=== PATIENT | female | born 1975 | race Caucasian/White ===

== ENCOUNTER → 2024-09-04 16:16 | Outpatient (REF) | payer BC, SELFPAY | LOC: WDC 16:16 | PROVIDERS: ATTENDING PHYSICIAN Obstetrics & Gynecology; FAMILY PHYSICIAN Internal Medicine | DX: Z12.31 Encounter for screening mammogram for malignant neoplasm of breast (principal) | CPT/HCPCS: 77063; 77067 ==

== ENCOUNTER 2025-10-08 12:12 | Emergency (ER) | payer BC, SELFPAY ==
[2025-10-08 12:24] VITALS: BP 121/98
[2025-10-08 13:13] VITALS: BMI 25.1
--- NOTE | 2025-10-08 13:59 | ED.MUSCINJ ---
HPI-Injury
General
Chief Complaint: Fall
Time Seen by Provider: 10/08/25 13:53
Nursing documentation reviewed up to this point in time: agreed with
History of Present Illness-Injury
Initial Injury comments:
49-year-old female presents to the ER for evaluation of valenzuela left forearm pain after she fell down the steps over the weekend. Patient states that she fell down an entire flight of wooden steps, mainly on her bottom back and left upper extremity.
Patient is right-handed. She states that she has been able to ambulate, she denies any specific discomfort in her extremities or her back. She is most concerned due to persistent bruising and pain over her left forearm. She denies any loss of
consciousness. No nausea or vomiting. No change in vision. No neck pain or paresthesias to her arms or legs. She is not on any blood thinners. She has not taken any pain relievers for her discomfort
Past History
Past History
ED Past Medical History: Other (MS, PVC's)
ED Past Surgical History: Cholecystectomy and Other (Deviated nasal septum)
Social History
Tobacco: Non-smoker
Alcohol: Occasional
Drug: None
Personal:
Living: with family
Review of Systems
Review of Systems
Allergies reviewed?: Yes
Phy Exam
Physical Exam
Physical Exam:
Vital signs reviewed, patient is awake, alert, appears no acute distress, head is normocephalic atraumatic, GCS is 15 moving all extremities symmetrically without focal deficit, bilateral upper extremities are examined, no focal pain on palpation
over bilateral shoulders, upper arms, right forearm wrist or hand, left forearm with mild pain along the medial forearm where there are multiple bruises, no bony deformity on palpation, no crepitus, point tenderness is present over the medial wrist
without deformity, ecchymosis or swelling, no pain on active range of motion of the hand, patient is able to easily supinate and pronate, no point tenderness on palpation over proximal radius
Injury Course
Orders/Labs/Results
Orders:
Orders
10/08/25 12:27
CR Forearm - Left 2 View Urgent
Comment:
Reason For Exam: fall down steps
Wrist, Left 3 Views CR [CR Wrist - Left Min 3 Views] Urgent
Comment:
Reason For Exam: fall down steps
MDM/Problems Addressed
Differential Diagnosis Includes:
differential diagnosis to consider but not limited to sprain, strain, fracture along with other etiologies considered
Chronic conditions affecting care:
Prior gastric ulcer
*Radiology
Radiology exam reviewed: preliminary read by ED provider (. I independently viewed and interpreted x-ray of the right wrist showing no fracture, no malaligned) and radiology read reviewed (I reviewed radiology interpretation x-rays of right wrist
and forearm-no fracture)
*Pulse Oximetry
SaO2: 97
Oxygen Mode of Delivery: Room air
Patient hypoxic: no
*Critical Care Note
Total Time (30-74mins, 75-104mins- exclusive of procedures): Not Applicable
Update Note
Update Note:
Is I independently viewed and interpreted x-rays of the forearm and wrist showing no acute fracture. I reviewed radiology interpretation which is in agreement. I discussed with patient continued supportive treatment of contusions. I discussed
with her use of medications, mainly Tylenol given her history of gastric ulcer. I discussed with patient topical creams that are available for additional supportive care. We also discussed the benefits of ice. Patient feels comfortable with plan
for discharge and had no questions prior to leaving the department
ED Attending Note
-
Portions of this chart may have been created with voice recognition software.� Occasional wrong word or��sound alike� substitutions may have occurred due to the inherent limitations of voice recognition software.
Discharge Plan
Departure
Patient Disposition: Home (Routine Discharge)
Date of Disposition: 10/08/25
Time of Disposition: 13:58
Patient with high blood pressure during this ER visit?: No
Discharge Problem:
Contusion of forearm, left
Instructions: Contusion (DC)
Prescriptions:
No Action
Tri Spectric
1 tab PO DAILY
oxycodone-acetaminophen 5 MG/325 MG tablet
1 - 2 tab PO Q4HPRN PRN (Reason: pain not relieved by ibuprofen) Qty: 10 0RF
ibuprofen 200 MG tablet
600 mg PO Q6HPRN PRN (Reason: pain) Qty: 0 0RF
ciprofloxacin HCl 500 MG tablet
500 mg PO Daily Qty: 3 0RF
pantoprazole [Protonix] 20 mg tablet,delayed release (DR/EC)
20 mg PO DAILY Qty: 20 0RF
Activity Restrictions/Additional Instructions:
Continues in Tylenol as well [id number] as needed for pain. You may also apply ice for 20 minutes intermittently throughout the day to help with swelling and discomfort. You may also want to try topical pain relieving creams such as Salonpas
or similar as available [id number] for additional pain relief. Follow-up with your family physician for reevaluation and further care. Return to the ER for any concerns
Interventions
Interventions:
*Risk Screen - Suicide Last Done: 10/08/25 12:13
*General Assessment Last Done: 10/08/25 12:26
*Neglect/Abuse Screening Last Done: 10/08/25 12:26
*ED COVID-19 Vaccine History Last Done: 10/08/25 12:26
*ED Influenza Vaccine History Last Done: 10/08/25 12:26
[facility] Fall Risk Assessment Tool Last Done: 10/08/25 13:13
*Nursing Disposition Last Done: 10/08/25 14:23
ED-Musculoskeletal Assessment Last Done: 10/08/25 13:13
ED- Neurological Assessment Last Done: 10/08/25 13:13
ED-Skin Assessment Last Done: 10/08/25 13:13
Discharge Date and Time
Discharge Date/Time: 10/08/25 14:20
Print Language: SENEGALESE
== END 2025-10-08 14:20 | disposition home or self-care (01) ==
LOC: EMR 12:12
PROVIDERS: EMERGENCY PHYSICIAN Emergency Medicine
DX: S50.12XA Contusion of left forearm, initial encounter (principal); W10.9XXA Fall (on) (from) unspecified stairs and steps, initial encounter; G35.D Multiple sclerosis, unspecified; I49.3 Ventricular premature depolarization; Z87.11 Personal history of peptic ulcer disease; Z90.49 Acquired absence of other specified parts of digestive tract
CPT/HCPCS: 99283; 73090; 73110